=== PATIENT | female | born 1990 | race Caucasian/White ===

== ENCOUNTER 2018-05-28 10:54 | Inpatient (IN) | payer OTHER ==
[~2018-05-28] VITALS: Ht 162.6 cm; Wt 73.6 kg
[2018-06-01] MEDS ORDERED: OXYTOCIN 30U/ 0.9% NaCL 500ML 500 ML IV ONE (05:13)
[2018-06-01] MEDS ORDERED: D5%-LACTATED RINGERS 1,000 ML IV SCH (05:13)
[2018-06-01] MEDS ORDERED: OXYTOCIN 30U/ 0.9% NaCL 500ML 500 ML IV PRN (05:13)
[2018-06-01] MEDS ORDERED: NEWBORN KIT ONE (05:22)
[2018-06-01 05:28] VITALS: BP 126/87
[2018-06-01] MEDS ORDERED: FENTANYL PF 100 MCG/2ML IV PRN (05:30)
[2018-06-01] MEDS ORDERED: ONDANSETRON 2MG/ML, 2ML IVPush PRN ×2 (05:30→09:30)
[2018-06-01] MEDS ORDERED: FENTANYL PF 100 MCG/2ML IVPush PRN (05:30)
[2018-06-01] MEDS ORDERED: CALCIUM CARBONATE 500 MG TAB.CHEW PO PRN (05:30)
[2018-06-01] MEDS ORDERED: SODIUM CITRATE/CITRIC ACID 15 ML UDC PO PRN (05:30)
[2018-06-01] MEDS ORDERED: PREN-3 PO (05:37)
[2018-06-01] MEDS: LACTATED RINGERS 1,000 ML IV SCH ×3 (05:49→10:48)
[2018-06-01 05:53] LABS: BASOPHILS # (AUTO) 0.03 x10^3/uL (0-0.1); BASOPHILS % (AUTO) 0 % (0-1); EOSINOPHILS # (AUTO) 0.17 x10^3/uL (0-0.4); EOSINOPHILS % (AUTO) 2 % (1-7); LYMPHOCYTES # (AUTO) 1.95 x10^3/uL (1-3.4); LYMPHOCYTES % (AUTO) 22 % (22-44); MD NO; MEAN CORPUSCULAR HEMOGLOBIN 31.2 pg (27.0-34.8); MEAN CORPUSCULAR HGB CONC 33.9 g/dL (32.4-35.8); MEAN PLATELET VOLUME 8.8 fL (7.4-10.4); MONOCYTES # (AUTO) 0.51 x10^3/uL (0.2-0.8); MONOCYTES % (AUTO) 6 % (2-9); NEUTROPHILS # (AUTO) 6.29 x10^3/uL (1.8-6.8); NEUTROPHILS % (AUTO) 70 % (42-75); PLATELET COUNT 192 x10^3/uL (130-400); RED BLOOD COUNT 3.86 x10^6/uL (3.82-5.3); RED CELL DISTRIBUTION WIDTH 13.9 % (9.6-15.2)
[2018-06-01] MEDS ORDERED: OXYTOCIN 30U/ 0.9% NaCL 500ML 500 ML ONE ×2 (06:02→14:58)
[2018-06-01] MEDS ORDERED: MISOPROSTOL 200 MCG TABLET ONE (06:03)
[2018-06-01] MEDS ORDERED: LIDOCAINE 1%, 20ML ONE (06:03)
[2018-06-01] MEDS ORDERED: FENTANYL/BUPIV./NS/PF 250 ML EPIDCONT SCH ×2 (07:51→09:29)
[2018-06-01] MEDS ORDERED: FENTANYL PF 500 MCG, BUPIVACAINE/PF 0.5%, 30ML 62.5 ML in SODIUM CHLORIDE 0.9% 177.5 ML EPIDCONT SCH (08:00)
[2018-06-01] MEDS ORDERED: BUPIVACAINE 0.25% ONE (09:05)
[2018-06-01] MEDS ORDERED: LIDOCAINE/PF 1.5%-EPI 1:200K, 30ML ONE (09:05)
[2018-06-01] MEDS ORDERED: LACTATED RINGERS 1,000 ML IV SCH (09:29)
[2018-06-01] MEDS ORDERED: NALOXONE 0.4 MG/ML, 1ML IVPush PRN (09:30)
[2018-06-01] MEDS ORDERED: EPHEDRINE 50 MG/ML, 1ML IVPush PRN (09:30)
[2018-06-01] MEDS ORDERED: DIPHENHYDRAMINE 50 MG/ML, 1ML IVPush PRN (09:30)
[2018-06-01] MEDS ORDERED: LACTATED RINGERS 1,000 ML IVBOLUS PRN (09:30)
[2018-06-01] MEDS ORDERED: IBUPROFEN 600 MG TABLET ONE (14:58)
[2018-06-01] MEDS ORDERED: MISOPROSTOL 200 MCG TABLET PR PRN (15:00)
[2018-06-01] MEDS ORDERED: IBUPROFEN 800 MG TABLET PO PRN (15:00)
[2018-06-01] MEDS ORDERED: ONDANSETRON 2MG/ML, 2ML IV PRN (15:00)
[2018-06-01] MEDS ORDERED: METHYLERGONOVINE 0.2 MG/ML IM PRN (15:00)
[2018-06-01] MEDS ORDERED: OXYcodone/APAP 5/325MG TABLET PO PRN (15:00)
[2018-06-01] MEDS: OXYTOCIN 30U/ 0.9% NaCL 500ML 500 ML IV SCH (15:05)
[2018-06-01] MEDS: IBUPROFEN 200 MG TABLET PO PRN ×2 (15:06→21:11)
[2018-06-01] MEDS ORDERED: ACETAMINOPHEN 325 MG TABLET PO PRN (15:30)
[2018-06-01 18:05] VITALS: BP 103/70
[2018-06-01 19:20] VITALS: BP 112/72
[2018-06-01] MEDS: DOCUSATE 100 MG CAPSULE PO PRN (21:11)
[2018-06-02 00:06] VITALS: BP 101/62
[2018-06-02 01:12] LABS: BASOPHILS # (AUTO) 0.04 x10^3/uL (0-0.1); BASOPHILS % (AUTO) 0 % (0-1); EOSINOPHILS # (AUTO) 0.08 x10^3/uL (0-0.4); EOSINOPHILS % (AUTO) 1 % (1-7); LYMPHOCYTES # (AUTO) 1.67 x10^3/uL (1-3.4); LYMPHOCYTES % (AUTO) 14 % (22-44); MD NO; MEAN CORPUSCULAR HEMOGLOBIN 31.5 pg (27.0-34.8); MEAN CORPUSCULAR HGB CONC 33.6 g/dL (32.4-35.8); MEAN CORPUSCULAR VOLUME 93.7 fL (80-100); MEAN PLATELET VOLUME 9.1 fL (7.4-10.4); MONOCYTES # (AUTO) 0.45 x10^3/uL (0.2-0.8); MONOCYTES % (AUTO) 4 % (2-9); NEUTROPHILS # (AUTO) 9.31 x10^3/uL (1.8-6.8); NEUTROPHILS % (AUTO) 81 % (42-75); PLATELET COUNT 187 x10^3/uL (130-400); RED BLOOD COUNT 3.66 x10^6/uL (3.82-5.3); RED CELL DISTRIBUTION WIDTH 13.8 % (9.6-15.2)
[2018-06-02] MEDS: OXYTOCIN 30U/ 0.9% NaCL 500ML 500 ML IV SCH ×2 (01:58→10:52)
[2018-06-02] MEDS: IBUPROFEN 200 MG TABLET PO PRN ×2 (02:45→09:17)
[2018-06-02] MEDS: OXYcodone/APAP 5/325MG TABLET PO PRN ×2 (02:46→09:14)
[2018-06-02 04:13] VITALS: BP 96/60
[2018-06-02 07:00] VITALS: BP 112/75
[2018-06-02] MEDS: DOCUSATE 100 MG CAPSULE PO PRN (07:32)
[2018-06-02] MEDS ORDERED: PRENATAL VIT/IRON/FA 1 EACH TABLET PO SCH (09:00)
[2018-06-02] MEDS ORDERED: IBUP-1223 PO (10:44)
[2018-06-02] MEDS ORDERED: OXYC-302 PO (10:45)
[2018-06-02 13:03] VITALS: BP 105/66
== END 2018-06-02 15:56 | disposition home or self-care (01) | DRG 807 ==
LOC: LDIP 06-01 05:10 → 2NW 06-01 17:19
PROVIDERS: ADMIT Obstetrics & Gynecology; ATTEND Obstetrics & Gynecology
PROC: 10E0XZZ Delivery of Products of Conception, External Approach (ICD-10-PCS; principal; 2018-06-01)
PROC: 0KQM0ZZ Repair Perineum Muscle, Open Approach (ICD-10-PCS; 2018-06-01)
PROC: 10907ZC Drainage of Amniotic Fluid, Therapeutic from Products of Conception, Via Natural or Artificial Opening (ICD-10-PCS; 2018-06-01)
DX: O48.0 Post-term pregnancy (principal); Z37.0 Single live birth; Z3A.40 40 weeks gestation of pregnancy; O70.1 Second degree perineal laceration during delivery
CPT/HCPCS: 36415; J3490; 85025; 86850; 86900; G0378; J3010; J2590; J7050; J7120